=== PATIENT | male | born 1945 | race Caucasian/White ===

== ENCOUNTER 2021-10-27 13:15 | Emergency (ER) | payer MEDICARE, OTHER, SELFPAY ==
[2021-10-27] VITALS (11 sets, daily range): BP systolic 94–120; BP diastolic 53–62; PULSE 51–71; RESP 16–25; TEMP 36.8; O2SAT 94–98; BMI 29.4
[2021-10-27] MEDS: SODIUM CHLORIDE 0.9% 1,000 ML 1000 ML IV (13:29)
[2021-10-27 13:36] LABS: Add Manual Diff / Slide Review NO; Basophils Absolute Auto 0 /uL (0-100); Basophils Percent Auto 0.6 % (0-2); Eosinophils Absolute Auto 100 /uL (0-450); Eosinophils Percent Auto 1.6 % (2-4); Hematocrit 38.5 % (41-53); Hemoglobin 13.6 g/dL (13.5-17.5); Lymphocytes Absolute Auto 3100 /uL (1100-4500); Lymphocytes Percent Auto 41.1 % (25-40); Mean Corpuscular HGB Conc 35.4 % (30-36); Mean Corpuscular Hemoglobin 35.3 PG (26-34); Mean Corpuscular Volume 99.8 fL (80-100); Monocytes Absolute Auto 500 /uL (0-900); Monocytes Percent Auto 6.9 % (3-14); Neutrophils Absolute Auto 3700 /uL (1500-7000); Neutrophils Percent Auto 49.8 % (50-75); Platelet Count 310 X10^3/uL (150-400); Red Blood Cell Count 3.85 X10^6/uL (4.5-5.9); Red Cell Distribution Width 12.8 % (11.6-14.8); White Blood Cell Count 7.5 X10^3/uL (4.5-11.0)
--- NOTE | 2021-10-27 13:38 | ED.GENADULT ---
HPI - General Adult General Chief complaint: Syncope Stated complaint: syncope Time Seen by Provider: 10/27/21 13:20 Source: patient and EMS Mode of arrival: EMS Limitations: no limitations History of Present Illness HPI narrative: Patient is a 76-year-old male with no reported medical history who was a smoker who is here for evaluation of a syncopal episode. Has reported by the patient that he was at an event earlier today. He states that he was standing in the sun for what he thought was an extended period of time. He did feel hot during the time. After the event he went inside. He continued to feel somewhat warm. When up to go to the bathroom. While he was in the bathroom he stated he started to feel very nauseous and generally not feeling very well. Denied chest pain. No shortness of breath. No abdominal pain. He walked outside. His and brother were with him. They are also here in the emergency department. They stated that he seemed somewhat confused and was lightheaded. He then passed out. He did not fall and hit the ground he was helped to the ground. No seizure-like activity. Reports were that he was out for approximately 3 minutes. No confusion afterwards. EMS was called. They found him to have a blood sugar greater than 120 but also found him to be hypotensive with standing. Patient was given fluids. By the time I evaluated him he stated that he was feeling much better. Review of Systems Review of Systems ROS Unobtainable: All systems reviewed & are unremarkable except as noted in HPI and below Patient History Medical History Patient denies medical problems Social History Smoking Status: Current every day smoker Smoking Status: Current every day smoker Substance Use Type: does not use Exam Initial Vital Signs Initial Vital Signs: Vital Signs Temperature 98.3 F 10/27/21 13:20 Pulse Rate 51 L 10/27/21 13:20 Respiratory Rate 16 10/27/21 13:20 Blood Pressure 99/53 L 10/27/21 13:20 Pulse Oximetry 96 10/27/21 13:20 Oxygen Delivery Method 10/27/21 13:20 Const General: cooperative, healthy appearing, comfortable, well developed and No ill appearing [facility] Head: normal to inspection and normocephalic Mouth: oral mucosae normal Resp Effort & Inspection: normal respiratory effort Auscultation: clear to auscultation bilaterally Cardio Rate: regular rate Rhythm: regular rhythm GI Inspection: normal to inspection Palpation: soft, No firm and No tender Skin General: no rashes or lesions noted Lesions: no lesions Neuro General: patient alert, patient awake, patient oriented x3 and moves all extremities Speech: speech normal Gait: normal gait Motor: muscle tone normal throughout Extrem General: normal to inspection and capillary refill normal Psych Appearance: grossly normal and well kempt Scores [place] CT Head Rule Age <16 years old: No Patient on blood thinners: No Seizure after injury: No Exclusion: Patient NOT Excluded, Proceed to next steps GCS < 15 at 2 hr post trauma: No Suspected open or depressed skull fracture: No Any sign of basilar skull fracture (hemotympanum, raccoon eyes, Limon's sign, CSF erinn-/rhinorrhea): No Two or more episodes of vomiting: No Age greater or equal to 65 years: Yes Retrograde amnesia to the event greater or equal to 30 min: No Dangerous Mechanism (pedestrian vs. mv, occupant ejected from mv, fall from >3 ft or > 5 stairs): No Recommendation: Consider CT. The [place] Head CT Rule cannot rule out need for Imaging. GCS [place] coma scale eye opening: Spontaneous Alanis coma scale verbal response: Orientated [place] coma scale motor response: Obey commands [place] coma scale total score: 15 Course Orders Ordered: ED Orders 10/27/21 13:10 Complete Blood Count AUTO DIFF Stat Comprehensive Metabolic Panel Stat Ethanol (ETOH) Stat Lipase Stat Troponin & CK Cardiac Panel Stat 10/27/21 13:25 EKG-12 Lead Stat Discontinued Medications Sodium Chloride (Normal Saline 0.9%) 1,000 mls @ 1,000 mls/hr IV BOLUS ONE Stop: 10/27/21 14:23 Last Infusion: 10/27/21 14:19 Dose: 0 mls/hr Documented By: [facility] Admin: 10/27/21 13:29 Dose: 1,000 mls/hr Documented By: [facility] Vital Signs Vital signs: Vital Signs - 8 hr 10/27/21 13:20 10/27/21 13:22 10/27/21 13:23 Temperature 98.3 F Pulse Rate 51 L 51 L 52 L Respiratory Rate 16 23 24 Blood Pressure 99/53 L Pulse Oximetry 96 95 94 Oxygen Delivery Method Room Air 10/27/21 13:23 10/27/21 13:30 10/27/21 13:30 Temperature Pulse Rate 51 L Respiratory Rate 22 Blood Pressure 99/53 L 94/55 L Pulse Oximetry 96 Oxygen Delivery Method 10/27/21 13:38 10/27/21 13:38 10/27/21 14:00 Temperature Pulse Rate 52 L Respiratory Rate 22 Blood Pressure 102/58 L 106/56 L Pulse Oximetry 97 Oxygen Delivery Method 10/27/21 14:00 10/27/21 14:30 10/27/21 14:30 Temperature Pulse Rate 60 61 Respiratory Rate 22 24 Blood Pressure 102/55 L Pulse Oximetry 98 95 Oxygen Delivery Method 10/27/21 14:34 10/27/21 14:34 Temperature Pulse Rate 71 Respiratory Rate Blood Pressure 102/56 L Pulse Oximetry 96 Oxygen Delivery Method Medical Decision Making Lab Data Lab results reviewed: Yes I reviewed the patient's lab results. Result diagrams: 10/27/21 13:10 10/27/21 13:10 Labs: Lab Results 10/27/21 10/27/21 10/27/21 Range/Units 13:10 13:10 13:10 WBC 7.5 (4.5-11.0) X10^3/uL RBC 3.85 L (4.5-5.9) X10^6/uL Hgb 13.6 (13.5-17.5) g/dL Hct 38.5 L (41-53) % MCV 99.8 (80-100) fL MCH 35.3 H (26-34) PG MCHC 35.4 (30-36) % RDW 12.8 (11.6-14.8) % Plt Count 310 (150-400) X10^3/uL Neut % (Auto) 49.8 L (50-75) % Lymph % (Auto) 41.1 H (25-40) % [place] % (Auto) 6.9 (3-14) % Eos % (Auto) 1.6 L (2-4) % Baso % (Auto) 0.6 (0-2) % Neut # (Auto) 3700 (5449-9006) /uL Lymph # (Auto) 3100 (5822-2638) /uL [place] # (Auto) 500 (0-900) /uL Eos # (Auto) 100 (0-450) /uL Baso # (Auto) 0 (0-100) /uL Sodium 131 L (137-145) mmol/L Potassium 4.2 (3.4-5.1) mmol/L Chloride 101 (98-107) mmol/L Carbon Dioxide 20 L (22-32) mmol/L BUN 23 H (9-20) mg/dL Creatinine 1.66 H (0.66-1.25) mg/dL Estimated GFR 42 L (>60) mL/min BUN/Creatinine Ratio 13.9 (6-22) Glucose 126 H (80-110) mg/dL Calcium 9.3 (8.4-10.2) mg/dL Total Bilirubin 0.8 (0.2-1.3) mg/dL AST 28 (17-59) IU/L ALT 15 (<50) IU/L Alkaline Phosphatase 59 (38-126) U/L Total Creatine Kinase 170 (55-170) U/L CK-MB (CK-2) 2.14 (<2.37) ng/mL CK-MB (CK-2) Rel Index 1.3 L (1.5-5.0) % Troponin I < 0.012 (0.01-0.034) ng/mL Total Protein 6.9 (6.3-8.2) g/dL Albumin 4.2 (3.5-5.0) g/dL Globulin 2.7 (1.7-4.1) g/dL Albumin/Globulin Ratio 1.6 (1.0-2.8) Lipase 75 (23-300) U/L Ethyl Alcohol < 10 ( - 10) mg/dL ECG Data Attestation: I personally reviewed and interpreted this ECG as follows: Interpretation: Sinus bradycardia Ventricular rate of 51 Normal axis Normal QRS Normal QTC No ST T wave changes MDM Narrative Medical decision making narrative: Patient is in the low risk group according to the [place] syncope rule. Patient did not hit his head. I have low suspicion for seizure. Low suspicion for CVA/TIA. Patient did have positive orthostatics by EMS upon their arrival and the patient does state that he was standing in the sun earlier today and was feeling hot. We did discuss the possibility of arrhythmia however EKG here is unremarkable. He was not having any palpitations during the time. Patient did tolerate oral intake. Ambulate around the emergency department. Will discharge patient home to follow-up with his primary provider. He was given strict return precautions. He expressed understanding and agreement. Discharge Plan Departure Patient Disposition: Home Clinical Impression: Syncope Instructions: DI for Syncope in Adults (Fainting) Activity Restrictions/Additional Instructions: I recommend that you contact your primary doctor to discuss further evaluation of your syncope today. Also recommend for the next 24 hours you increase your fluid intake. Return to the emergency department for any new or worsening symptoms.
--- NOTE | 2021-10-27 13:40 | PC.NURSE ---
Patient reports out in sunshine for some time this morning suddenly started to not feel well went down to restroom, felt nauseated in restroom. Patient then witnessed by family staggering and not making sense eyes rolled back and we lowered him down to the ground Patient reports feeling improved upon arrival to ER.
[2021-10-27 13:48] LABS: Alanine Aminotransferase 15 IU/L (<50); Albumin 4.2 g/dL (3.5-5.0); Albumin Globulin Ratio 1.6 (1.0-2.8); Alkaline Phosphatase 59 U/L (38-126); Aspartate Aminotransferase 28 IU/L (17-59); BUN Creatinine Ratio 13.9 (6-22); Bilirubin Total 0.8 mg/dL (0.2-1.3); Blood Urea Nitrogen 23 mg/dL (9-20); Calcium 9.3 mg/dL (8.4-10.2); Carbon Dioxide 20 mmol/L (22-32); Chloride 101 mmol/L (98-107); Creatine Kinase 170 U/L (55-170); Estimated Glomerular Filt Rate 42 mL/min (>60); Ethanol (ETOH) < 10 mg/dL; Globulin 2.7 g/dL (1.7-4.1); Glucose 126 mg/dL (80-110); HEMOLYSIS < 15 (0-50); Lipase 75 U/L (23-300); Potassium 4.2 mmol/L (3.4-5.1); Sodium 131 mmol/L (137-145); Total Protein 6.9 g/dL (6.3-8.2)
[2021-10-27 13:58] LABS: Troponin I < 0.012 ng/mL (0.01-0.034)
[2021-10-27 14:03] LABS: CKMB % Relative Index 1.3 % (1.5-5.0); Creatine Kinase MB 2.14 ng/mL (<2.37)
--- NOTE | 2021-10-27 14:38 | PC.NURSE ---
Denies chest pain or SOB. Reports feeling wobbly at beginning slightly better at end. Reports more tired than normal don't feel like going for a big hike
== END 2021-10-27 15:13 | disposition home or self-care (01) ==
PROVIDERS: Emergency Provider Emergency Medicine
DX: R55 Syncope and collapse (principal); R07.9 Chest pain, unspecified
CPT/HCPCS: 36415; 80053; 80320; 82550; 82553; 83690; 84484; 85025; 93005; 93010; 99284